=== PATIENT | female | born 1995 | race Caucasian/White ===

== ENCOUNTER 2018-01-05 20:32 | Emergency (ER) | payer OTHER ==
--- NOTE | 2018-01-05 20:39 | UC ---
Complaint Female HPI - HPI Summary HPI Summary: 22 yo female presents with 2 at home positive tests. Her LMP was December 02 and she says she never misses her menstrual cycle. Has had unprotected sexual intercourse during this time. No OBC. Denies dysuria, abdominal pain, n/v , or vaginal discharge. - History Of Current Complaint Stated Complaint: TEST Time Seen by Provider: 01/05/18 20:39 Hx Obtained From: Patient Hx Last Menstrual Period: November Severity Currently: None - Allergies/Home Medications Allergies/Adverse Reactions: Allergies Allergy/AdvReac Type Severity Reaction Status Date / Time No Known Allergies Allergy Verified 01/05/18 20:50 PMH/Surg Hx/FS Hx/Imm Hx - Additional Past Medical History Additional PMH: None Previously Healthy: Yes - Surgical History Surgical History: None - Family History Known Family History: Positive: None Family History: no hisotry of cardiac disease - Social History Occupation: Employed Full-time Lives: With Family Alcohol Use: None Substance Use Type: None Smoking Status (MU): Never Smoked Tobacco - Immunization History Vaccination Up to Date: Yes Review of Systems Constitutional: Negative Skin: Negative Respiratory: Negative Cardiovascular: Negative Gastrointestinal: Negative Genitourinary: Negative Neurovascular: Negative Neurological: Negative Psychological: Negative All Other Systems Reviewed And Are Negative: Yes Physical Exam - Summary Physical Exam Summary: GENERAL: NAD. WDWN. No pain distress. SKIN: No rashes, sores, lesions, or open wounds. NECK: Supple. Nontender. No lymphadenopathy. CHEST: No accessory muscle use. Breathing comfortably and in no distress. CV: Pulses intact. Brisk cap refill. ABDOMEN: Soft. NTTP. No distention or guarding. No CVA tenderness. Bowel sounds present NEURO: Alert. PSYCH: Age appropriate behavior. Triage Information Reviewed: Yes Vital Signs: Vital Signs: Temp Pulse Resp BP Pulse Ox 98.1 F 84 16 120/84 100 01/05/18 20:46 01/05/18 20:46 01/05/18 20:46 01/05/18 20:46 01/05/18 20:46 Laboratory Tests 01/05/18 20:54 POC Ur Test Negative Vital Signs Reviewed: Yes Complaint Female Dx - Course Course Of Treatment: Urine test was negative here. A blood draw HCG was obtained and we will call pt with results. Currently, she is hoping she is not , but does have two other children and has OBGYN follow up if her blood test is positive. - Differential Dx/Diagnosis Provider Diagnoses: Positive at home test Discharge - Sign-Out/Discharge Documenting (check all that apply): Patient Departure - Discharge Plan Condition: Stable Disposition: HOME Referrals: AN Gardner [Medical Doctor] - Additional Instructions: If you develop a fever, shortness of breath, chest pain, new or worsening symptoms - please call your PCP or go to the ED. Per institutional requirements, I have reviewed the chart, however, I was not consulted specifically or made aware of this patient by the above midlevel provider. I did not personally evaluate, interact with , or disposition this patient. - Billing Disposition and Condition Condition: STABLE Disposition: Home
[2018-01-05 20:50] VITALS: BP 120/84
== END 2018-01-05 21:16 | disposition home or self-care (01) ==
LOC: UCCORT 20:32
DX: Z32.01 Encounter for pregnancy test, result positive (principal)
CPT/HCPCS: 36415; 84702; 99211; G0463